=== PATIENT | female | born 1980 | race Caucasian/White ===

== ENCOUNTER 2019-08-16 08:27 | Emergency (ER) | payer MEDICAID ==
--- NOTE | 2019-08-16 08:39 | EDM.PDOC ---
ED HPI GENERAL MEDICAL PROBLEM - General Chief Complaint: General Stated Complaint: SWOLLEN GLANDS Time Seen by Provider: 08/16/19 08:39 Source of Information: Reports: Patient History Limitations: Reports: No Limitations - History of Present Illness INITIAL COMMENTS - FREE TEXT/NARRATIVE: This 38 year old female is admitted to the ED with a chief complaint of " swollen glands in her right groin and left neck". The swelling in her right groin started 4 days ago with little pain associated with it and developed as sore throat 3 days ago with swelling of glands in her neck. She complains of a mild cough over the past 4 days with lethargy. She denies any fever or chills. She denies any other symptoms at this time. Onset: Gradual Duration: Day(s): (4 days ago with right groin swelling with very little discomfort progressing to left neck "gland" swelling that started Wednesday (3 days ago).) Location: Reports: Other (right groin and left neck nodes.) Quality: Reports: Other (not painful but uncomfortable.) Severity: Mild Improves with: Reports: None Worsens with: Reports: None Associated Symptoms: Reports: Weakness Right groin Pain Score (Numeric/FACES): 7 lymph nodes Pain Score (Numeric/FACES): 7 - Related Data Allergies Allergy/AdvReac Type Severity Reaction Status Date / Time No Known Allergies Allergy Verified 08/16/19 08:42 Home Meds: Home Meds Estrogen,Con/M-Progest Acet [Prempro 0.3 MG-1.5 MG] 1 mg PO DAILY 07/12/16 [ History] Venlafaxine [Effexor] 150 mg PO DAILY 07/12/16 [History] Cephalexin [Keflex] 500 mg PO BID 6 Days #12 capsule 08/16/19 [Rx] Progesterone 100 mg PO ASDIRECTED 08/16/19 [History] Past Medical History - Past Surgical History Female Surgical History: Reports: Hysterectomy Social & Family History - Family History Family Medical History: Noncontributory - Caffeine Use Caffeine Use: Reports: None ED ROS GENERAL - Review of Systems Review Of Systems: See Below Constitutional: Reports: Weakness, Fatigue HEENT: Reports: Throat Pain (as if throat is "on fire". Had tonsils removed years ago.) Respiratory: Reports: Cough (mild coughing over the past 4 days.) Cardiovascular: Reports: No Symptoms Endocrine: Reports: No Symptoms GI/Abdominal: Reports: No Symptoms : Reports: No Symptoms Musculoskeletal: Reports: No Symptoms Skin: Reports: No Symptoms, Lumps (right groin and left anterior neck.) Neurological: Reports: No Symptoms ED EXAM, GENERAL - Physical Exam Exam: See Below Exam Limited By: No Limitations General Appearance: Alert, WD/WN, No Apparent Distress Eye Exam: Bilateral Eye: EOMI, Normal Inspection, PERRL Ears: Normal External Exam, Normal Canal, Hearing Grossly Normal, Normal TMs Ear Exam: Bilateral Ear: Auricle Normal, Canal Normal, TM normal Nose: Normal Inspection, Normal Mucosa, No Blood Throat/Mouth: Normal Lips, Normal Teeth, Other (erythema is noted of the posterior pharynx with mild exudate. No tonsils noted.) Head: Atraumatic, Normocephalic Neck: Normal Inspection, Supple, Full Range of Motion, Lymphadenopathy (L) (2.5 X 3.5cm slightly tender high anterior cervical lymph node.). No: Carotid Bruit , Thyromegaly Respiratory/Chest: No Respiratory Distress, Lungs Clear, Normal Breath Sounds, No Accessory Muscle Use, Chest Non-Tender Cardiovascular: Normal Peripheral Pulses, Regular Rate, Rhythm, No Edema, No Gallop, No JVD, No Murmur, No Rub Peripheral Pulses: 3+: Carotid (L), Dorsalis Pedis (L), Dorsalis Pedis (R), 4+: Carotid (R), Femoral (L), Femoral (R) GI/Abdominal: Normal Bowel Sounds, Soft, Non-Tender, No Organomegaly, No Distention, No Abnormal Bruit, No Mass (Female) Exam: Deferred (but there is a 3.5 X 4.0cm slightly tender right inguinal lymph node.) Rectal (Female) Exam: Deferred Back Exam: Normal Inspection, Full Range of Motion, NT Extremities: Normal Inspection, Normal Range of Motion, Non-Tender, Normal Capillary Refill, No Pedal Edema Neurological: Alert, Oriented, CN II-XII Intact, Normal Cognition, Normal Gait, Normal Reflexes, No Motor/Sensory Deficits Psychiatric: Normal Affect, Normal Mood Lymphatic: Adenopathy (As noted above.) Course - Vital Signs Text/Narrative:: When evaluating the patient laying down, the lymph node in the right groin is unremarkable. I discussed this with the patient. I also reviewed all of her diagnostic test. She will be discharged on Keflex for the erythema and right cervical node. The patient agrees with the discharge plan. Last Recorded V/S: Last Vital Signs Temp 99.4 F 08/16/19 08:40 Pulse 99 08/16/19 08:40 Resp 18 08/16/19 08:40 BP 131/85 08/16/19 08:40 Pulse Ox 95 08/16/19 08:40 - Orders/Labs/Meds Orders: Active Orders 24 hr Category Date Time Status CULTURE STREP A CONFIRMATION [RM] Stat Lab 08/16/19 09:25 Results STREP SCRN A RAPID W CULT CONF [RM] Stat Lab 08/16/19 09:25 Results cephALEXin [Keflex] Med 08/16/19 11:08 Once 500 mg PO ONETIME ONE Medication Orders Cephalexin (Keflex) 500 mg PO ONETIME ONE Stop: 08/16/19 11:09 Labs: Laboratory Tests 08/16/19 08/16/19 08/16/19 Range/Units 08:40 09:04 09:04 WBC 13.29 H (4.0-11.0) K/uL RBC 4.63 (4.30-5.90) M/uL Hgb 14.2 (12.0-16.0) g/dL Hct 42.5 (36.0-46.0) % MCV 91.8 (80.0-98.0) fL MCH 30.7 (27.0-32.0) pg MCHC 33.4 (31.0-37.0) g/dL RDW Std Deviation 45.0 (28.0-62.0) fl RDW Coeff of Grace 14 (11.0-15.0) % Plt Count 182 (150-400) K/uL MPV 10.60 (7.40-12.00) fL Neut % (Auto) 83.2 H (48.0-80.0) % Lymph % (Auto) 8.7 L (16.0-40.0) % Bartholomew % (Auto) 7.1 (0.0-15.0) % Eos % (Auto) 0.8 (0.0-7.0) % Baso % (Auto) 0.2 (0.0-1.5) % Neut # (Auto) 11.1 H (1.4-5.7) K/uL Lymph # (Auto) 1.2 (0.6-2.4) K/uL Bartholomew # (Auto) 1.0 H (0.0-0.8) K/uL Eos # (Auto) 0.1 (0.0-0.7) K/uL Baso # (Auto) 0.0 (0.0-0.1) K/uL Nucleated RBC % 0.0 /100WBC Nucleated RBCs # 0 K/uL Sodium 142 (136-145) mmol/L Potassium 4.0 (3.5-5.1) mmol/L Chloride 105 (98-107) mmol/L Carbon Dioxide 29.1 (21.0-32.0) mmol/L BUN 10 (7.0-18.0) mg/dL Creatinine 0.8 (0.6-1.0) mg/dL Est Cr Clr Drug Dosing 92.72 mL/min Estimated GFR (MDRD) > 60.0 ml/min Glucose 104 (74-106) mg/dL Calcium 8.9 (8.5-10.1) mg/dL Total Bilirubin 0.3 (0.2-1.0) mg/dL AST 18 (15-37) IU/L ALT 19 (14-63) IU/L Alkaline Phosphatase 74 (46-116) U/L Total Protein 7.4 (6.4-8.2) g/dL Albumin 3.8 (3.4-5.0) g/dL Globulin 3.6 (2.6-4.0) g/dL Albumin/Globulin Ratio 1.1 (0.9-1.6) Urine Color YELLOW Urine Appearance SLT CLOUDY Urine pH 6.0 (5.0-8.0) Ur Specific Devine 1.025 (1.001-1.035) Urine Protein NEGATIVE (NEGATIVE) mg/dL Urine Glucose (UA) NEGATIVE (NEGATIVE) mg/dL Urine Ketones TRACE H (NEGATIVE) mg/dL Urine Occult Blood NEGATIVE (NEGATIVE) Urine Nitrite NEGATIVE (NEGATIVE) Urine Bilirubin NEGATIVE (NEGATIVE) Urine Urobilinogen 0.2 (<2.0) EU/dL Ur Leukocyte Esterase NEGATIVE (NEGATIVE) Meds: Medications Generic Name Dose Route Start Last Admin Trade Name Freq PRN Reason Stop Dose Admin Cephalexin 500 mg 08/16/19 11:08 Keflex PO 08/16/19 11:09 ONETIME ONE Departure - Departure Time of Disposition: 11:14 Disposition: Home, Self-Care 01 Condition: Good Clinical Impression: Lymph nodes enlarged, Bronchitis - Discharge Information *PRESCRIPTION DRUG MONITORING PROGRAM REVIEWED*: Yes *COPY OF PRESCRIPTION DRUG MONITORING REPORT IN PATIENT KASEY: Yes Referrals: Cheryl [place] DO [Primary Care Provider] - Forms: ED Department Discharge Additional Instructions: Take all medications as directed. Follow up with your PCP in the next two to four days. Drink plenty of clear liquids for the next 24-48 hours. Rest for the next 24 hours. Return to the ED if your condition gets worse or should you have any questions or concerns. The following information is given to patients seen in the emergency department who are being discharged to home. This information is to outline your options for follow-up care. We provide all patients seen in our emergency department with a follow-up referral. The need for follow-up, as well as the timing and circumstances, are variable depending upon the specifics of your emergency department visit. If you don't have a primary care physician on staff, we will provide you with a referral. We always advise you to contact your personal physician following an emergency department visit to inform them of the circumstance of the visit and for follow-up with them and/or the need for any referrals to a consulting specialist. The emergency department will also refer you to a specialist when appropriate. This referral assures that you have the opportunity for follow-up care with a specialist. All of these measure are taken in an effort to provide you with optimal care, which includes your follow-up. Under all circumstances we always encourage you to contact your private physician who remains a resource for coordinating your care. When calling for follow-up care, please make the office aware that this follow-up is from your recent emergency room visit. If for any reason you are refused follow-up, please contact the [facility] Emergency Department at and asked to speak to the emergency department charge nurse. Sepsis Event Note - Focused Exam Vital Signs: Vital Signs Temp Pulse Resp BP Pulse Ox 08/16/19 08:40 99.4 F 99 18 131/85 95 Date Exam was Performed: 08/16/19 Time Exam was Performed: 11:08 - My Orders Last 24 Hours: My Active Orders 08/16/19 09:25 CULTURE STREP A CONFIRMATION [RM] Stat STREP SCRN A RAPID W CULT CONF [RM] Stat 08/16/19 11:08 cephALEXin [Keflex] 500 mg PO ONETIME ONE - Assessment/Plan Last 24 Hours: My Active Orders 08/16/19 09:25 CULTURE STREP A CONFIRMATION [RM] Stat STREP SCRN A RAPID W CULT CONF [RM] Stat 08/16/19 11:08 cephALEXin [Keflex] 500 mg PO ONETIME ONE
--- NOTE | 2019-08-16 09:41 | CR ---
Chest: 2 views of the chest were obtained. Comparison: No prior chest imaging is available. Heart size and mediastinum are normal. Lungs are clear. Bony structures are unremarkable. Impression: 1. Nothing acute is appreciated on 2 view chest x-ray. Diagnostic code #1 This report was dictated in Mountain Standard Time
[2019-08-16 09:53] LABS: BLOOD UREA NITROGEN,BUN 10 mg/dL (7.0-18.0); CARBON DIOXIDE,CO2 29.1 mmol/L (21.0-32.0); CHLORIDE,CL 105 mmol/L (98-107); GLUCOSE RANDOM 104 mg/dL (74-106); SODIUM,NA 142 mmol/L (136-145)
[2019-08-16] MEDS ORDERED: Cephalexin 500 MG Cap PO ONE (11:08)
[2019-08-16 11:35] VITALS: BP 135/81; PULSE 98
== END 2019-08-16 11:34 | disposition home or self-care (01) ==
LOC: MW.ED 08:27
DX: R59.0 Localized enlarged lymph nodes (principal); J40 Bronchitis, not specified as acute or chronic; Z79.899 Other long term (current) drug therapy
CPT/HCPCS: 36415; 71046; 80053; 81003; 85025; 87081; 87880; 99283; A9270

== ENCOUNTER 2020-03-24 15:39 | Emergency (ER) | payer MEDICAID ==
[2020-03-24 15:59] VITALS: BP 122/73; PULSE 96
--- NOTE | 2020-03-24 16:11 | EDM.PDOC ---
ED HPI GENERAL MEDICAL PROBLEM - General Chief Complaint: ENT Problem Stated Complaint: STREP THROAT Time Seen by Provider: 03/24/20 15:42 Source of Information: Reports: Patient History Limitations: Reports: No Limitations - History of Present Illness INITIAL COMMENTS - FREE TEXT/NARRATIVE: 39F no relevant PMHx presents for sore throat. 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 Got a COVID test yesterday which was negative, but her school is requiring that she also be tested for strep throat. She denies cough, shortness of breath, fever, or other symptoms other than sore throat. Throat Pain Score (Numeric/FACES): 4 - Related Data Allergies Allergy/AdvReac Type Severity Reaction Status Date / Time sulfamethoxazole Allergy Rash Verified 08/16/19 11:22 [From Bactrim] trimethoprim [From Bactrim] Allergy Rash Verified 08/16/19 11:22 Home Meds: Home Meds Estrogen,Con/M-Progest Acet [Prempro 0.3 MG-1.5 MG] 1 mg PO DAILY 07/12/16 [History] Venlafaxine [Effexor] 150 mg PO DAILY 07/12/16 [History] Progesterone, Micronized [Progesterone] 100 mg PO ASDIRECTED MDD EVERY OTHER DAY 03/24/20 [History] Past Medical History HEENT History: Reports: None Cardiovascular History: Reports: None Respiratory History: Reports: None Gastrointestinal History: Reports: None Genitourinary History: Reports: None [employer] History: Reports: None Musculoskeletal History: Reports: None Neurological History: Reports: None Psychiatric History: Reports: None Endocrine/Metabolic History: Reports: None Hematologic History: Reports: None Immunologic History: Reports: None Oncologic (Cancer) History: Reports: None Dermatologic History: Reports: None - Infectious Disease History Infectious Disease History: Reports: Chicken Pox - Past Surgical History Female Surgical History: Reports: Hysterectomy Social & Family History - Family History Family Medical History: Noncontributory - Caffeine Use Caffeine Use: Reports: None ED ROS ENT - Review of Systems Review Of Systems: Comprehensive ROS is negative, except as noted in HPI. ED EXAM, ENT - Physical Exam Exam: See Below Exam Limited By: No Limitations General Appearance: Alert, WD/WN, No Apparent Distress Ears: Normal External Exam Nose: Normal Inspection, Normal Mucousa Mouth/Throat: Normal Inspection, Normal Gums, Normal Lips, Normal Oropharynx, Normal Teeth. No: Hoarse Voice, Muffled Voice, Pharyngeal Erythema, Throat Swelling, Tongue Swelling, Tonsillar Exudates, Tonsillar Swelling, Uvular Deviation Head: Atraumatic, Normocephalic Neck: Normal Inspection Respiratory/Chest: No Respiratory Distress, Lungs Clear, Normal Breath Sounds, No Accessory Muscle Use Cardiovascular: Normal Peripheral Pulses, Regular Rate, Rhythm Extremities: Normal Inspection Neurological: Alert Psychiatric: Normal Affect, Normal Mood Skin: Warm, Dry, Intact, Normal Color Course - Vital Signs Last Recorded V/S: Last Vital Signs Temp 97.1 F 03/24/20 15:50 Pulse 96 03/24/20 15:50 Resp 20 03/24/20 15:50 BP 122/73 03/24/20 15:50 Pulse Ox 97 03/24/20 15:50 - Orders/Labs/Meds Orders: Active Orders 24 hr Category Date Time Status CULTURE STREP A CONFIRMATION [] Stat Lab 03/24/20 16:05 Results STREP SCRN A RAPID W CULT CONF [] Stat Lab 03/24/20 16:05 Results - Re-Assessments/Exams Free Text/Narrative Re-Assessment/Exam: 03/24/20 16:11 Will f/u rapid strep testing and dispo accordingly. 03/24/20 16:24 Strep testing negative. Will d/c with PMD f/u and return precautions Departure - Departure Time of Disposition: 16:24 Disposition: Home, Self-Care 01 Condition: Good Clinical Impression: Pharyngitis Qualifiers: Pharyngitis/tonsillitis etiology: unspecified etiology Qualified Code(s): J02.9 - Acute pharyngitis, unspecified - Discharge Information Instructions: Pharyngitis Referrals: Cheryl Linton DO [Primary Care Provider] - Forms: ED Department Discharge, ED Return to Work/School Form Additional Instructions: The following information is given to patients seen in the emergency department who are being discharged to home. This information is to outline your options for follow-up care. We provide all patients seen in our emergency department with a follow-up referral. The need for follow-up, as well as the timing and circumstances, are variable depending upon the specifics of your emergency department visit. If you don't have a primary care physician on staff, we will provide you with a referral. We always advise you to contact your personal physician following an emergency department visit to inform them of the circumstance of the visit and for follow-up with them and/or the need for any referrals to a consulting specialist. The emergency department will also refer you to a specialist when appropriate. This referral assures that you have the opportunity for follow-up care with a specialist. All of these measure are taken in an effort to provide you with optimal care, which includes your follow-up. Under all circumstances we always encourage you to contact your private physician who remains a resource for coordinating your care. When calling for follow-up care, please make the office aware that this follow-up is from your recent emergency room visit. If for any reason you are refused follow-up, please contact the [facility] Emergency Department at and asked to speak to the emergency department charge nurse. Follow up with a primary care physician in 1-3 days; if you do not already have one, you can utilize either of the below clinics and let them know you were seen in the ED and require alfonso follow-up: [facility] [address] [place] [address] [address] Sepsis Event Note (ED) - Evaluation Sepsis Screening Result: No Definite Risk - Focused Exam Vital Signs: Vital Signs Temp Pulse Resp BP Pulse Ox 03/24/20 15:50 97.1 F 96 20 122/73 97 - My Orders Last 24 Hours: My Active Orders 03/24/20 16:05 CULTURE STREP A CONFIRMATION [RM] Stat STREP SCRN A RAPID W CULT CONF [RM] Stat - Assessment/Plan Last 24 Hours: My Active Orders 03/24/20 16:05 CULTURE STREP A CONFIRMATION [RM] Stat STREP SCRN A RAPID W CULT CONF [RM] Stat
== END 2020-03-24 16:32 | disposition home or self-care (01) ==
LOC: MW.ED 15:39
DX: J02.9 Acute pharyngitis, unspecified (principal); Z88.2 Allergy status to sulfonamides; Z20.828 Contact with and (suspected) exposure to other viral communicable diseases; Z79.899 Other long term (current) drug therapy
CPT/HCPCS: 87081; 87880-QW; 99282; 99283

== ENCOUNTER 2020-10-26 15:38 | Emergency (ER) | payer MEDICAID ==
--- NOTE | 2020-10-26 15:40 | EDM.PDOC ---
ED HPI GENERAL MEDICAL PROBLEM - General Stated Complaint: LT PINKER CUT/INJURY Time Seen by Provider: 10/26/20 15:39 Source of Information: Reports: Patient History Limitations: Reports: No Limitations - History of Present Illness INITIAL COMMENTS - FREE TEXT/NARRATIVE: HISTORY AND PHYSICAL: History of present illness: The patient is a 40-year-old female who presents to the emergency room with a laceration on her 5th left finger palmar side. 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 She wrapped the finger up and came straight to the emergency room. She did not take any [id number] medicines prior to coming to the emergency room. Patient denies any fever, chills, headache, change in vision, syncope or near syncope. Denies any chest pain, back pain, shortness of breath or cough. Denies any abdominal pain, nausea, vomiting, diarrhea, constipation or dysuria. Patient has been eating and drinking appropriately. Review of systems: As per history of present illness and below otherwise all systems reviewed and negative. Past medical history: As per history of present illness and as reviewed below otherwise noncontributory. Surgical history: As per history of present illness and as reviewed below otherwise noncontributory. Social history: See social history for further information Family history: As per history of present illness and as reviewed below otherwise noncontributory. Physical exam: General: Well developed and well nourished. Alert and orientated x 3. Nontoxic in appearance and in no acute distress. Vital signs are stable and have been reviewed by me. Nursing notes were reviewed. HEENT: Atraumatic, normocephalic, pupils equal and reactive bilaterally, negative for conjunctival pallor or scleral icterus, mucous membranes moist, TMs normal bilaterally, throat clear, neck supple, nontender, trachea midline. No drooling or trismus noted. No meningeal signs. No hot potato voice noted. Lungs: Clear to auscultation bilaterally. No wheezes, rales, or rhonchi. Chest nontender. Normal work of breathing, no accessory muscles used. Heart: S1S2, regular rate and rhythm without overt murmur, gallops, or rubs. No JVD. No peripheral edema Abdomen: Soft, nondistended, nontender. Normoactive bowel sounds. Negative for masses or costovertebral tenderness. Skin: 1.2 cm linear laceration on left 5th finger palmar side. No lesions or rashes noted. Hematologic: No petechiae or purpra. Mucosa appropriate color and normal nail bed color and refill. Extremities: Moves all extremities per self without difficulty or deficits, negative for cords or calf pain. Neurovascular unremarkable. Neuro: Awake, alert, oriented. Cranial nerves II through XII unremarkable. Cerebellum unremarkable. Motor and sensory unremarkable throughout. Exam nonfocal. Psychiatric: Mood and affect are appropriate. Normal thought process. Answering questions appropriately. Notes: *This patient was seen and evaluated during the 2019 SARS-CoV-2 novel coronavirus pandemic period. Community viral transmission is ongoing at time of this encounter and the emergency department is operating under pandemic response procedures. After discussion and exam the patient is agreeable to suture approximation of laceration. I have talked with the patient about today's findings, in addition to providing specific details for plan of care. Reassessment at the time of disposition demonstrates that the patient is in no acute distress. The patient is stable for discharge, counseling was provided and we discussed in great detail signs and symptoms that would prompt them to return to the Emergency Department. Medication, follow up and supportive care measures were reviewed and discussed. Voices understanding and is agreeable to plan of care. Denies any further questions or concerns at this time. Therapeutics:Lidocaine 1% Impression: left 5th finger laceration Plan: 1. You were evaluated today on an emergent basis. Your complaint of left 5th digit laceration. Your laceration closed with 3 sutures. Keep the area clean and dry. Monitor for signs of infection such as redness, swelling, and drainage. Have the sutures removed in 7-10 days. You can return to the emergency department for removal. 2. You can alternate Tylenol and ibuprofen as needed for pain and fever management. 3. We encourage you to follow up with your primary care provider and/or recommended specialist in the next few days for re-evaluation and further care/management. 4. If your symptoms should worsen, new symptoms develop or any of the signs and symptoms we discussed should arise please return to the emergency room or call 911 (if needed). Definitive disposition and diagnosis as appropriate pending reevaluation and review of above. Left Finger-Little Pain Score (Numeric/FACES): 4 - Related Data Allergies Allergy/AdvReac Type Severity Reaction Status Date / Time sulfamethoxazole Allergy Rash Verified 10/26/20 15:51 [From Bactrim] trimethoprim [From Bactrim] Allergy Rash Verified 10/26/20 15:51 Skin glue Allergy Other Uncoded 10/26/20 15:51 Home Meds: Home Meds Progesterone, Micronized [Progesterone] 100 mg PO ASDIRECTED MDD EVERY OTHER DAY 03/24/20 [History] Albuterol [Ventolin HFA] 1 dose INH ASDIRECTED 10/26/20 [History] Budesonide/Formoterol Fumarate [Symbicort 160-4.5 Mcg Inhaler] 1 dose INH ASDIRECTED 10/26/20 [History] Dextroamphetamine [Dextrostat] 5 mg PO DAILY 10/26/20 [History] Doxycycline [Vibramycin] 100 mg PO DAILY 10/26/20 [History] Estradiol [Jeni] 1 dose ASDIRECTED 10/26/20 [History] Venlafaxine [Effexor] 1 dose PO ASDIRECTED 10/26/20 [History] predniSONE [Prednisone] 5 mg PO DAILY 10/26/20 [History] Past Medical History HEENT History: Reports: None Cardiovascular History: Reports: None Respiratory History: Reports: None Gastrointestinal History: Reports: None Genitourinary History: Reports: None STREET [employer]IC History: Reports: None Musculoskeletal History: Reports: None Neurological History: Reports: None Psychiatric History: Reports: None Endocrine/Metabolic History: Reports: None Hematologic History: Reports: None Immunologic History: Reports: None Oncologic (Cancer) History: Reports: None Dermatologic History: Reports: None - Infectious Disease History Infectious Disease History: Reports: Chicken Pox - Past Surgical History Female Surgical History: Reports: Hysterectomy Social & Family History - Family History Family Medical History: No Pertinent Family History - Caffeine Use Caffeine Use: Reports: None Review of Systems - Review of Systems Review Of Systems: Comprehensive ROS is negative, except as noted in HPI. ED EXAM, GENERAL - Physical Exam Exam: See Below (See dictation) ED TRAUMA EXTREMITY PROCEDURES - Laceration/Wound Repair Left Ventral Digit - 5th (Baby) Lac/Wound Length In cm: 1.2 Appearance: Superficial, Linear Distal NVT: Neuro & Vascular Intact, No Tendon Injury Anesthetic Type: Local Local Anesthesia - Lidocaine (Xylocaine): 1% Plain Local Anesthetic Volume: 2cc Skin Prep: Chlorhexidine (Hibiciens) Exploration/Debridement/Repair: Wound Explored, No Foreign Material Found Closed With: Sutures Suture Size: 3-0 # of Sutures: 3 Suture Type: Prolene Course - Vital Signs Last Recorded V/S: Last Vital Signs Temp 97 F 10/26/20 15:54 Pulse 110 H 10/26/20 15:54 Resp 18 10/26/20 15:54 BP 143/88 H 10/26/20 15:54 Pulse Ox 95 10/26/20 15:54 - Orders/Labs/Meds Meds: Medications Discontinued Medications Generic Name Dose Route Start Last Admin Trade Name Darryl PRN Reason Stop Dose Admin Lidocaine HCl 2 ml 10/26/20 15:45 10/26/20 16:00 Lidocaine 1% Pf 2 Ml Sdv INJECT 10/26/20 15:46 2 ml ONETIME ONE Administration Departure - Departure Time of Disposition: 16:13 Disposition: Home, Self-Care 01 Condition: Good Clinical Impression: Laceration of finger Qualifiers: Encounter type: initial encounter Finger: little finger Damage to nail status: without damage Foreign body presence: without foreign body Laterality: left Qualified Code(s): S61.217A - Laceration without foreign body of left little finger without damage to nail, initial encounter - Discharge Information *PRESCRIPTION DRUG MONITORING PROGRAM REVIEWED*: Not Applicable *COPY OF PRESCRIPTION DRUG MONITORING REPORT IN PATIENT KASEY: Not Applicable Instructions: Laceration Care, Adult Referrals: PCP,None [Primary Care Provider] - Forms: ED Department Discharge Additional Instructions: The following information is given to patients seen in the emergency department who are being discharged to home. This information is to outline your options for follow-up care. We provide all patients seen in our emergency department with a follow-up referral. The need for follow-up, as well as the timing and circumstances, are variable depending upon the specifics of your emergency department visit. If you don't have a primary care physician on staff, we will provide you with a referral. We always advise you to contact your personal physician following an emergency department visit to inform them of the circumstance of the visit and for follow-up with them and/or the need for any referrals to a consulting specialist. The emergency department will also refer you to a specialist when appropriate. This referral assures that you have the opportunity for follow-up care with a specialist. All of these measure are taken in an effort to provide you with optimal care, which includes your follow-up. Under all circumstances we always encourage you to contact your private physician who remains a resource for coordinating your care. When calling for follow-up care, please make the office aware that this follow-up is from your recent emergency room visit. If for any reason you are refused follow-up, please contact the [facility] Emergency Department at and asked to speak to the emergency department charge nurse. [facility] [address] [place] [id number] [address] Plan: 1. You were evaluated today on an emergent basis. Your complaint of left 5th digit laceration. Your laceration closed with 3 sutures. Keep the area clean and dry. Monitor for signs of infection such as redness, swelling, and drainage. Have the sutures removed in 7-10 days. You can return to the emergency department for removal. 2. You can alternate Tylenol and ibuprofen as needed for pain and fever management. 3. We encourage you to follow up with your primary care provider and/or recommended specialist in the next few days for re-evaluation and further care/management. 4. If your symptoms should worsen, new symptoms develop or any of the signs and symptoms we discussed should arise please return to the emergency room or call 911 (if needed). Sepsis Event Note (ED) - Focused Exam Vital Signs: Vital Signs Temp Pulse Resp BP Pulse Ox 10/26/20 15:54 97 F 110 H 18 143/88 H 95
[2020-10-26] MEDS ORDERED: Lidocaine 1% PF 2 ML SDV INJECT ONE (15:45)
[2020-10-26 16:25] VITALS: BP 143/88; PULSE 110
== END 2020-10-26 16:19 | disposition home or self-care (01) ==
LOC: MW.ED 15:38
DX: S61.217A Laceration without foreign body of left little finger without damage to nail, initial encounter (principal); Z88.2 Allergy status to sulfonamides; Z91.048 Other nonmedicinal substance allergy status; Z88.1 Allergy status to other antibiotic agents; Z79.899 Other long term (current) drug therapy; W25.XXXA Contact with sharp glass, initial encounter
CPT/HCPCS: 12001; 99282; 99282-25

== ENCOUNTER 2021-03-06 17:34 | Emergency (ER) | payer MEDICAID ==
--- NOTE | 2021-03-06 19:15 | CR ---
INDICATION: Cough, shortness of breath TECHNIQUE: Chest 2 views. COMPARISON: August 16, 2019 FINDINGS: Cardiovascular and mediastinum: Heart size and vasculature are normal in caliber and appearance. Mediastinum is within normal limits. Lungs and pleural spaces: New patchy opacity in the right upper lobe. No sign of pleural effusion. No pneumothorax. Bones and soft tissues: No significant findings. IMPRESSION: Patchy opacity in the right upper lobe concerning for infection, including COVID-19. Dictated by Samina Devine MD @ 03/06/2021 7:12:[address] Samina Devine @ Mar 06 2021 7:12PM
--- NOTE | 2021-03-06 19:59 | EDM.PDOC ---
ED HPI GENERAL MEDICAL PROBLEM - General Chief Complaint: Respiratory Problem Stated Complaint: FEEELS LIKE GETTING BRONCHIDIS Time Seen by Provider: 03/06/21 17:36 Source of Information: Reports: Patient History Limitations: Reports: No Limitations - History of Present Illness INITIAL COMMENTS - FREE TEXT/NARRATIVE: HISTORY AND PHYSICAL: History of present illness: Patient is a 40-year-old female who presents to the ED today with concern of sore throat, and cough for the past 3 days. Patient states that she does have a history of seasonal allergies which typically happens in the fall and thought that initially this was her allergies. Patient states that she also has had a stuffy/runny nose which is why she had that she was having seasonal allergies. Patient states she then began feeling like she was having bronchitis starting yesterday as she has been tired and fatigued and wanting to sleep most of the day. Patient states she does not think she has COVID-19 as she had this back in September of this year. Patient states that she does have exercise-induced asthma Patient denies fever, chills, chest pain, shortness of breath. Denies headache, neck stiff ness, change in vision, syncope, or near syncope. Denies nausea, vomiting, abdominal pain, diarrhea, constipation, or dysuria. Has not noted any blood in urine or stool. Patient has been eating and drinking appropriately. Review of systems: As per history of present illness and below otherwise all systems reviewed and negative. Past medical history: As per history of present illness and as reviewed below otherwise noncontributory. Surgical history: As per history of present illness and as reviewed below otherwise noncontributory. Social history: See social history for further information Family history: As per history of present illness and as reviewed below otherwise noncontributory. Physical exam: General: Patient is alert, oriented, and in no acute distress. Patient sitting comfortably on exam table, tired appearing. Vitals stable and reviewed by me. HEENT: Atraumatic, normocephalic, pupils equal and reactive bilaterally, negative for conjunctival pallor or scleral icterus, mucous membranes moist, throat clear, uvula midline neck supple, nontender, trachea midline. No drooling or trismus noted. No meningeal signs. No hot potato voice noted. Lungs: Clear to auscultation, breath sounds equal bilaterally, chest nontender. Heart: S1S2, regular rate and rhythm without overt murmur Abdomen: Soft, nondistended, nontender. Negative for masses or hepatosplenomegaly. Negative for costovertebral tenderness. Pelvis: Stable nontender. Genitourinary: Deferred. Rectal: Deferred. Skin: Intact, warm, dry. No lesions or rashes noted. Extremities: Atraumatic, negative for cords or calf pain. Neurovascular unremarkable. Neuro: Awake, alert, oriented. Cranial nerves II through XII unremarkable. Cerebellum unremarkable. Motor and sensory unremarkable throughout. Exam nonfocal. Notes: Patient is a 40-year-old female who presents emergency room today with concern of sore throat and cough x3 days and feeling tired and rundown worsening over the past 1 to 2 days. Upon arrival to the ED, patient is vitally stable and tired appearing on exam. Exam is otherwise unremarkable. Will obtain a two- view chest x-ray, influenza/COVID-19 and strep swab. Influenza/COVID-19/strep negative. Chest x-ray shows patchy opacity in the right upper lobe concerning for infection. Upon reevaluation of patient, she remains vitally stable and comfortable throughout stay in ED but still feels tired/rundown according to patient. Given concern for community aquired pneumonia, I did offer basic labwork, however, patient declined stating she is ready to go home and sleep for the night. She states that she will monitor her symptoms closely at home and will return if she feels this is necessary. Will give patient her first dose of antibiotics today in the emergency room due to pharmacies closing and send Rx to the pharmacy. Strict return precautions thoroughly discussed with patient. Discussed importance for follow-up with primary care provider. Voices understanding and is agreeable to plan of care. Denies any further questions or concerns at this time. Diagnostics: COVID-19, influenza, chest x-ray two-view, strep Therapeutics: Augmentin, Tylenol Prescription: Augmentin, azithromycin Impression: Community-acquired pneumonia, right upper lobe Plan: 1. Take medication as prescribed. You can alternate ibuprofen and Tylenol as directed for pain and discomfort. 2. Follow-up with a primary care provider as discussed. Return to the ED as needed and as discussed. Definitive disposition and diagnosis as appropriate pending reevaluation and review of above. Sore throat Pain Score (Numeric/FACES): 5 - Related Data Allergies Allergy/AdvReac Type Severity Reaction Status Date / Time sulfamethoxazole Allergy Rash Verified 10/26/20 15:51 [From Bactrim] trimethoprim [From Bactrim] Allergy Rash Verified 10/26/20 15:51 Skin glue Allergy Other Uncoded 10/26/20 15:51 Home Meds: Home Meds Progesterone, Micronized [Progesterone] 100 mg PO ASDIRECTED MDD EVERY OTHER DAY 03/24/20 [History] Albuterol [Ventolin HFA] 1 dose INH ASDIRECTED 10/26/20 [History] Estradiol [Jeni] 1 dose ASDIRECTED 10/26/20 [History] Venlafaxine [Effexor] 1 dose PO ASDIRECTED 10/26/20 [History] Amoxicillin/Potassium Clav [Augmentin 875-125 Tablet] 1 each PO BID 7 Days #14 tablet 03/06/21 [Rx] Azithromycin 250 mg PO DAILY 5 Days #6 tablet 03/06/21 [Rx] Past Medical History HEENT History: Reports: None Cardiovascular History: Reports: None Respiratory History: Reports: Asthma, Bronchitis, Recurrent Gastrointestinal History: Reports: None Genitourinary History: Reports: None 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 Musculoskeletal History: Reports: None Neurological History: Reports: None Psychiatric History: Reports: Anxiety Endocrine/Metabolic History: Reports: None Hematologic History: Reports: None Immunologic History: Reports: None Oncologic (Cancer) History: Reports: None Dermatologic History: Reports: None - Infectious Disease History Infectious Disease History: Reports: Chicken Pox - Past Surgical History Head Surgeries/Procedures: Reports: None HEENT Surgical History: Reports: Adenoidectomy, Tonsillectomy Cardiovascular Surgical History: Reports: None Respiratory Surgical History: Reports: None GI Surgical History: Reports: None Female Surgical History: Reports: Hysterectomy Endocrine Surgical History: Reports: None Neurological Surgical History: Reports: None Musculoskeletal Surgical History: Reports: None Oncologic Surgical History: Reports: None Dermatological Surgical History: Reports: None Social & Family History - Family History Family Medical History: No Pertinent Family History - Tobacco Use Tobacco Use Status *Q: Never Tobacco User - Caffeine Use Caffeine Use: Reports: None - Recreational Drug Use Recreational Drug Use: No ED ROS GENERAL - Review of Systems Review Of Systems: Comprehensive ROS is negative, except as noted in HPI. ED EXAM, GENERAL - Physical Exam Exam: See Below (see dictation) Course - Vital Signs Last Recorded V/S: Last Vital Signs Temp 97.6 F 03/06/21 18:13 Pulse 90 03/06/21 20:38 Resp 18 03/06/21 20:38 BP 127/70 03/06/21 20:38 Pulse Ox 97 03/06/21 20:38 - Orders/Labs/Meds Orders: Active Orders 24 hr Category Date Time Status Isolation [COMM] Routine Oth 03/06/21 18:22 Active Labs: Laboratory Tests 03/06/21 03/06/21 Range/Units 19:03 20:04 SARS-CoV-2 RNA (FATMATA) NEGATIVE (NEGATIVE) Group A Strep (PCR) NOT DETECTED (NOT DETECT) Meds: Medications Discontinued Medications Generic Name Dose Route Start Last Admin Trade Name Darryl PRN Reason Stop Dose Admin Acetaminophen 1,000 mg 03/06/21 20:48 Acetaminophen 500 Mg Tab PO 03/06/21 20:49 ONETIME ONE Amoxicillin/Clavulanate Potassium 1 tab 03/06/21 20:47 Amoxicillin/Clavulanate K 875-125 Mg Tab PO 03/06/21 20:48 ONETIME ONE Departure - Departure Time of Disposition: 20:49 Disposition: Home, Self-Care 01 Clinical Impression: Community acquired pneumonia Qualifiers: Laterality: right Lung location: upper lobe of lung Qualified Code(s): J18.9 - Pneumonia, unspecified organism - Discharge Information Prescriptions: Amoxicillin/Potassium Clav [Augmentin 875-125 Tablet] 1 each PO BID 7 Days #14 tablet Azithromycin 250 mg PO DAILY 5 Days #6 tablet Referrals: Cheryl Linton DO [Primary Care Provider] - Forms: ED Department Discharge Additional Instructions: The following information is given to patients seen in the emergency department who are being discharged to home. This information is to outline your options for follow-up care. We provide all patients seen in our emergency department with a follow-up referral. The need for follow-up, as well as the timing and circumstances, are variable depending upon the specifics of your emergency department visit. If you don't have a primary care physician on staff, we will provide you with a referral. We always advise you to contact your personal physician following an emergency department visit to inform them of the circumstance of the visit and for follow-up with them and/or the need for any referrals to a consulting specialist. The emergency department will also refer you to a specialist when appropriate. This referral assures that you have the opportunity for follow-up care with a specialist. All of these measure are taken in an effort to provide you with optimal care, which includes your follow-up. Under all circumstances we always encourage you to contact your private physician who remains a resource for coordinating your care. When calling for follow-up care, please make the office aware that this follow-up is from your recent emergency room visit. If for any reason you are refused follow-up, please contact the [facility] Emergency Department at and asked to speak to the emergency department charge nurse. [facility] [address] [place] [id number] [address] 1. Take medication as prescribed. You can alternate ibuprofen and Tylenol as directed for pain and discomfort. 2. Follow-up with a primary care provider as discussed. Return to the ED as needed and as discussed. Sepsis Event Note (ED) - Evaluation Sepsis Screening Result: No Definite Risk - Focused Exam Vital Signs: Vital Signs Temp Pulse Resp BP Pulse Ox 03/06/21 20:38 90 18 127/70 97 03/06/21 19:42 80 18 118/72 97 03/06/21 18:13 97.6 F 95 17 120/71 97 - My Orders Last 24 Hours: My Active Orders 03/06/21 18:22 Isolation [COMM] Routine - Assessment/Plan Last 24 Hours: My Active Orders 03/06/21 18:22 Isolation [COMM] Routine
[2021-03-06] MEDS ORDERED: Amoxicillin/Clavulanate K 875-125 MG Tab PO ONE (20:47)
[2021-03-06] MEDS ORDERED: Acetaminophen 500 MG Tab PO ONE (20:48)
[2021-03-06 21:08] VITALS: BP 124/70; PULSE 87
== END 2021-03-06 21:11 | disposition home or self-care (01) ==
LOC: MW.ED 17:34
DX: J18.9 Pneumonia, unspecified organism (principal); J45.909 Unspecified asthma, uncomplicated; Z79.899 Other long term (current) drug therapy; Z88.2 Allergy status to sulfonamides; Z88.1 Allergy status to other antibiotic agents; Z91.09 Other allergy status, other than to drugs and biological substances; Z20.822 Contact with and (suspected) exposure to COVID-19
CPT/HCPCS: 71046; 87635; 87651; 87804; 99283; A9270; U0002

== ENCOUNTER 2021-03-08 09:57 | Emergency (ER) | payer MEDICAID ==
--- NOTE | 2021-03-08 10:11 | EDM.PDOC ---
ED HPI GENERAL MEDICAL PROBLEM - General Chief Complaint: Respiratory Problem Stated Complaint: hurts to breath Time Seen by Provider: 03/08/21 10:02 Source of Information: Reports: Patient History Limitations: Reports: No Limitations - History of Present Illness INITIAL COMMENTS - FREE TEXT/NARRATIVE: HISTORY AND PHYSICAL: History of present illness: The patient is a 40-year-old female, with a history of community-acquired pneumonia diagnosed on 03/06/2021 and started on Augmentin and azithromycin, who presents to the emergency room with complaints of worsening of fatigue. The patient's chest x-ray on 03/06/2021 was read as patchy opacity in the right upper lobe concerning for infection, including COVID-19 dictated by Radiologist Samina Devine MD. the patient states that she has been taking her antibiotic as prescribed with her last dose taken at 07 30 this morning. The patient states that she has a home oxygen sensor and it has been reading 92-96. The patient, states that her cough initially was wet however now it is dry. She has having some mild left-sided lateral wall discomfort with cough and deep breath. The patient thought that initially she had allergies or a bronchitis upon approach presenting to the emergency room on 03/06/2021. The patient states that she has been having diarrhea since starting the antibiotics. She states that she is attempting to drink fluids but realizes she is not taking enough. The patient states that her urine has been dark. The patient states that she has not been taking her temperature however, she is chilled at night when sleeping. In the emergency department the patient is hemodynamically stable with a blood pressure of 114/73 and a heart rate of 72. The patient's SPO2 is 98% on room air. Review of systems: As per history of present illness and below otherwise all systems reviewed and negative. Past medical history: As per history of present illness and as reviewed below otherwise noncontributory. Surgical history: As per history of present illness and as reviewed below otherwise noncontributory. Social history: See social history for further information Family history: As per history of present illness and as reviewed below otherwise noncontributory. Physical exam: General: Well developed and well nourished. Alert and orientated x 3. Nontoxic in appearance and in no acute distress. Vital signs are stable and have been reviewed by me. Nursing notes were reviewed. HEENT: Atraumatic, normocephalic, pupils equal and reactive bilaterally, negative for conjunctival pallor or scleral icterus, mucous membranes moist, TMs normal bilaterally, throat clear, neck supple, nontender, trachea midline. No drooling or trismus noted. No meningeal signs. No hot potato voice noted. Lungs: Clear to auscultation bilaterally. No wheezes, rales, or rhonchi. Chest nontender. Normal work of breathing, no accessory muscles used. Heart: S1S2, regular rate and rhythm without overt murmur, gallops, or rubs. No JVD. No peripheral edema Abdomen: Soft, nondistended, nontender. Normoactive bowel sounds. Negative for masses or costovertebral tenderness. Skin: Intact, warm, dry. No lesions or rashes noted. Hematologic: No petechiae or purpra. Mucosa appropriate color and normal nail bed color and refill. Extremities: Atraumatic, moves all extremities per self without difficulty or deficits, negative for cords or calf pain. Neurovascular unremarkable. Neuro: Awake, alert, oriented. Cranial nerves II through XII unremarkable. Cerebellum unremarkable. Motor and sensory unremarkable throughout. Exam nonfocal. Psychiatric: Mood and affect are appropriate. Normal thought process. Answering questions appropriately. Notes: *This patient was seen and evaluated during the 2019 SARS-CoV-2 novel coronavirus pandemic period. Community viral transmission is ongoing at time of this encounter and the emergency department is operating under pandemic response procedures. As stated above the patient is a 40-year-old female that was diagnosed with community-acquired pneumonia on 03/06/2021 and started on Augmentin and azithromycin. The patient has been taking her medications as prescribed. She has been attempting to drink but states she is unable to drink a lot. She states that her appetite has been fine. The patient had refused blood work on her previous visit on 03/06/2021. For today's purposes the patient is not interested in repeating a COVID-19 swab. I will obtain blood work to include blood cultures and a repeat chest x-ray. I will order IV fluids and Toradol for her discomfort. The patient is agreeable with this plan. Patient CBC and CMP were essentially normal. The patient's x-ray was unchanged. I consulted with Dr. Evans who stated the patient had only been on the antibiotics for 2 days and should continue them and to follow-up with her primary care. I discussed the results with the patient and she was agreeable with this discharge plan. I have talked with the patient about today's findings, in addition to providing specific details for plan of care. Reassessment at the time of disposition demonstrates that the patient is in no acute distress. The patient is stable for discharge, counseling was provided and we discussed in great detail signs and symptoms that would prompt them to return to the Emergency Department. Medication, follow up and supportive care measures were reviewed and discussed. Voices understanding and is agreeable to plan of care. Denies any further questions or concerns at this time. Diagnostics: BC, CMP, blood cultures x2, chest x-ray Therapeutics: IV fluids, Toradol 30 IV Impression: Community-acquired pneumonia Plan: 1. You were evaluated today on an emergent basis. Your complaints of increased fatigue and unchanged symptoms with pneumonia were evaluated blood work and another chest x-ray with additional blood cultures. Your blood work was normal. Your chest x-ray IMPRESSION: Right upper lobe infiltrate consistent with pneumonia. As you have only had 2 days with your current antibiotics, I would like for you to continue them and follow-up with your primary care on Wednesday of next week. If you become short of breath or your O2 sensor reads below 92% please return to the emergency department. 2. You can alternate Tylenol and ibuprofen as needed for pain and fever management. 3. We encourage you to follow up with your primary care provider and/or recommended specialist in the next few days for re-evaluation and further care/management. 4. If your symptoms should worsen, new symptoms develop or any of the signs and symptoms we discussed should arise please return to the emergency room or call 911 (if needed). Definitive disposition and diagnosis as appropriate pending reevaluation and review of above. - Related Data Allergies Allergy/AdvReac Type Severity Reaction Status Date / Time sulfamethoxazole Allergy Rash Verified 03/08/21 10:37 [From Bactrim] trimethoprim [From Bactrim] Allergy Rash Verified 03/08/21 10:37 Skin glue Allergy Other Uncoded 03/08/21 10:37 Home Meds: Home Meds Progesterone, Micronized [Progesterone] 100 mg PO ASDIRECTED MDD EVERY OTHER DAY 03/24/20 [History] Albuterol [Ventolin HFA] 1 dose INH ASDIRECTED 10/26/20 [History] Estradiol [Jeni] 1 dose ASDIRECTED 10/26/20 [History] Venlafaxine [Effexor] 1 dose PO ASDIRECTED 10/26/20 [History] Amoxicillin/Potassium Clav [Augmentin 875-125 Tablet] 1 each PO BID 7 Days #14 tablet 03/06/21 [Rx] Azithromycin 250 mg PO DAILY 5 Days #6 tablet 03/06/21 [Rx] Past Medical History HEENT History: Reports: None Cardiovascular History: Reports: None Respiratory History: Reports: Asthma, Bronchitis, Recurrent Gastrointestinal History: Reports: None Genitourinary History: Reports: None [employer] History: Reports: None Musculoskeletal History: Reports: None Neurological History: Reports: None Psychiatric History: Reports: Anxiety Endocrine/Metabolic History: Reports: None Hematologic History: Reports: None Immunologic History: Reports: None Oncologic (Cancer) History: Reports: None Dermatologic History: Reports: None - Infectious Disease History Infectious Disease History: Reports: Chicken Pox - Past Surgical History Head Surgeries/Procedures: Reports: None HEENT Surgical History: Reports: Adenoidectomy, Tonsillectomy Cardiovascular Surgical History: Reports: None Respiratory Surgical History: Reports: None GI Surgical History: Reports: None Female Surgical History: Reports: Hysterectomy Endocrine Surgical History: Reports: None Neurological Surgical History: Reports: None Musculoskeletal Surgical History: Reports: None Oncologic Surgical History: Reports: None Dermatological Surgical History: Reports: None Social & Family History - Family History Family Medical History: No Pertinent Family History - Caffeine Use Caffeine Use: Reports: None ED ROS GENERAL - Review of Systems Review Of Systems: Comprehensive ROS is negative, except as noted in HPI. ED EXAM, GENERAL - Physical Exam Exam: See Below (Dictation) Course - Vital Signs Last Recorded V/S: Last Vital Signs Temp 97.9 F 03/08/21 10:17 Pulse 68 03/08/21 11:53 Resp 18 03/08/21 10:17 BP 125/78 03/08/21 11:53 Pulse Ox 97 03/08/21 11:53 - Orders/Labs/Meds Labs: Laboratory Tests 03/08/21 03/08/21 Range/Units 10:59 10:59 WBC 10.62 (4.0-11.0) K/uL RBC 4.79 (4.30-5.90) M/uL Hgb 14.6 (12.0-16.0) g/dL Hct 43.6 (36.0-46.0) % MCV 91.0 (80.0-98.0) fL MCH 30.5 (27.0-32.0) pg MCHC 33.5 (31.0-37.0) g/dL RDW Std Deviation 44.2 (28.0-62.0) fl RDW Coeff of Grace 13 (11.0-15.0) % Plt Count 234 (150-400) K/uL MPV 11.10 (7.40-12.00) fL Neut % (Auto) 69.8 (48.0-80.0) % Lymph % (Auto) 22.0 (16.0-40.0) % Harvey % (Auto) 6.7 (0.0-15.0) % Eos % (Auto) 1.0 (0.0-7.0) % Baso % (Auto) 0.5 (0.0-1.5) % Neut # (Auto) 7.4 H (1.4-5.7) K/uL Lymph # (Auto) 2.3 (0.6-2.4) K/uL Harvey # (Auto) 0.7 (0.0-0.8) K/uL Eos # (Auto) 0.1 (0.0-0.7) K/uL Baso # (Auto) 0.1 (0.0-0.1) K/uL Nucleated RBC % 0.0 /100WBC Nucleated RBCs # 0 K/uL Sodium 143 (136-145) mmol/L Potassium 3.6 (3.5-5.1) mmol/L Chloride 105 (98-107) mmol/L Carbon Dioxide 27.0 (21.0-32.0) mmol/L BUN 13 (7.0-18.0) mg/dL Creatinine 0.8 (0.6-1.0) mg/dL Est Cr Clr Drug Dosing 94.30 mL/min Estimated GFR (MDRD) > 60.0 ml/min Glucose 100 (74-106) mg/dL Calcium 9.0 (8.5-10.1) mg/dL Total Bilirubin 0.2 (0.2-1.0) mg/dL AST 20 (15-37) IU/L ALT 28 (14-63) IU/L Alkaline Phosphatase 84 (46-116) U/L Total Protein 7.9 (6.4-8.2) g/dL Albumin 3.6 (3.4-5.0) g/dL Globulin 4.3 H (2.6-4.0) g/dL Albumin/Globulin Ratio 0.8 L (0.9-1.6) Meds: Medications Discontinued Medications Generic Name Dose Route Start Last Admin Trade Name Freq PRN Reason Stop Dose Admin Sodium Chloride 1,000 mls @ 999 mls/hr 03/08/21 10:34 03/08/21 11:30 Normal Saline IV 03/08/21 11:34 999 mls/hr .BOLUS ONE Administration Ketorolac Tromethamine 30 mg 03/08/21 10:34 03/08/21 11:31 Ketorolac 30 Mg/Ml Sdv IVPUSH 03/08/21 10:35 30 mg ONETIME ONE Administration Sodium Chloride 10 ml 03/08/21 10:30 03/08/21 11:31 Sodium Chloride 0.9% 10 Ml Syringe FLUSH 10 ml ASDIRECTED PRN Administration Keep Vein Open Sodium Chloride 2.5 ml 03/08/21 10:30 03/08/21 11:30 Sodium Chloride 0.9% 2.5 Ml Syringe FLUSH 2.5 ml ASDIRECTED PRN Administration Keep Vein Open Departure - Departure Time of Disposition: 12:25 Disposition: Home, Self-Care 01 Condition: Good Clinical Impression: Community acquired pneumonia Qualifiers: Laterality: right Lung location: upper lobe of lung Qualified Code(s): J18.9 - Pneumonia, unspecified organism - Discharge Information *PRESCRIPTION DRUG MONITORING PROGRAM REVIEWED*: Not Applicable *COPY OF PRESCRIPTION DRUG MONITORING REPORT IN PATIENT KASEY: Not Applicable Instructions: Community-Acquired Pneumonia, Adult Referrals: Cheryl Linton DO [Primary Care Provider] - Forms: ED Department Discharge Additional Instructions: The following information is given to patients seen in the emergency department who are being discharged to home. This information is to outline your options for follow-up care. We provide all patients seen in our emergency department with a follow-up referral. The need for follow-up, as well as the timing and circumstances, are variable depending upon the specifics of your emergency department visit. If you don't have a primary care physician on staff, we will provide you with a referral. We always advise you to contact your personal physician following an emergency department visit to inform them of the circumstance of the visit and for follow-up with them and/or the need for any referrals to a consulting specialist. The emergency department will also refer you to a specialist when appropriate. This referral assures that you have the opportunity for follow-up care with a specialist. All of these measure are taken in an effort to provide you with optimal care, which includes your follow-up. Under all circumstances we always encourage you to contact your private keo [email or web address] who remains a resource for coordinating your care. When calling for follow-up care, please make the office aware that this follow-up is from your recent emergency room visit. If for any reason you are refused follow-up, please contact the [facility] Emergency Department at and asked to speak to the emergency department charge nurse. [facility] [address] [place] [address] [facility] [address] [place] [id number] Plan: 1. You were evaluated today on an emergent basis. Your complaints of increased fatigue and unchanged symptoms with pneumonia were evaluated blood work and another chest x-ray with additional blood cultures. Your blood work was normal. Your chest x-ray IMPRESSION: Right upper lobe infiltrate consistent with pneumonia. As you have only had 2 days with your current antibiotics, I would like for you to continue them and follow-up with your primary care on Wednesday of next week. If you become short of breath or your O2 sensor reads below 92% please return to the emergency department. 2. You can alternate Tylenol and ibuprofen as needed for pain and fever management. 3. We encourage you to follow up with your primary care provider and/or recommended specialist in the next few days for re-evaluation and further care/management. 4. If your symptoms should worsen, new symptoms develop or any of the signs and symptoms we discussed should arise please return to the emergency room or call [phone] (if needed).
[2021-03-08] MEDS ORDERED: Sodium Chloride 0.9% 2.5 ML Syringe FLUSH PRN (10:30)
[2021-03-08] MEDS ORDERED: Sodium Chloride 0.9% 10 ML Syringe FLUSH PRN (10:30)
[2021-03-08] MEDS ORDERED: Sodium Chloride 0.9% 1,000 ML IV ONE (10:34)
[2021-03-08] MEDS ORDERED: Ketorolac 30 MG/ML SDV IVPUSH ONE (10:34)
[2021-03-08 11:42] LABS: BLOOD UREA NITROGEN,BUN 13 mg/dL (7.0-18.0); CHLORIDE,CL 105 mmol/L (98-107); GLUCOSE RANDOM 100 mg/dL (74-106); POTASSIUM,K 3.6 mmol/L (3.5-5.1); SODIUM,NA 143 mmol/L (136-145)
--- NOTE | 2021-03-08 12:11 | CR ---
INDICATION: Shortness of breath. Recent diagnosis of pneumonia.. COMPARISON: none TECHNIQUE: Two view chest. FINDINGS: There is patchy alveolar and ground-glass infiltration within the right upper lobe. Lungs are otherwise clear. The heart, mediastinum and pulmonary vessels are of normal size. There is no evidence of pleural fluid. IMPRESSION: Right upper lobe infiltrate consistent with pneumonia. Dictated by Darrius Nicholas MD @ 03/08/2021 12:09:[address] Darrius Nicholas @ Mar 08 2021 12:09PM
[2021-03-08 12:18] VITALS: BP 125/78; PULSE 68
== END 2021-03-08 12:44 | disposition home or self-care (01) ==
LOC: MW.ED 09:57
DX: J18.9 Pneumonia, unspecified organism (principal); J45.909 Unspecified asthma, uncomplicated; Z88.1 Allergy status to other antibiotic agents; Z91.09 Other allergy status, other than to drugs and biological substances; Z79.899 Other long term (current) drug therapy
CPT/HCPCS: 36415; 71046; 80053; 85025; 87040; 96374; 99285; J1885; J7030

== ENCOUNTER 2021-03-22 08:18 | Emergency (ER) | payer MEDICAID ==
[2021-03-22] MEDS ORDERED: Ketorolac 15 MG/ML SDV IVPUSH ONE (08:32)
[2021-03-22] MEDS ORDERED: Ketorolac 15 MG/ML SDV IM ONE (08:40)
--- NOTE | 2021-03-22 08:53 | EDM.PDOC ---
ED HPI GENERAL MEDICAL PROBLEM - General Chief Complaint: Upper Extremity Injury/Pain Stated Complaint: SHOULDER PAIN Time Seen by Provider: 03/22/21 08:22 - History of Present Illness INITIAL COMMENTS - FREE TEXT/NARRATIVE: CHIEF COMPLAINT(S): Right arm pain HISTORY OF PRESENT ILLNESS: This is a 40-year-old woman with a recent diagnosis of community-acquired pneumonia who has completed antibiotic treatment who comes to the emergency department with a chief complaint of right arm pain. The patient states that for the last 3 days she has been experiencing right shoulder pain which radiates down into the tricep area of her arm and into her fingers. She states that it is rated 8 out of 10 and describes the pain as swollen and straight pain. She does not describe it as burning, sharp, aching. She states there is some associated tingling like her hand is falling asleep. She states that she feels that the shoulder area is black and blue. She denies any fevers, chills, shoulder injury. She states that she has tried Tylenol without any relief. She also tried ice 20 minutes and a heating pad without any relief. She denies any neck injury or neck pain. She does not recall what happened. She states that the pain is exacerbated by touching it and moving it. She states that there are no relieving factors. She has also tried Flexeril without any relief. She denies any chest pain, shortness of breath, recent travel, recent surgery or prior history of DVT or PE. She states that she is vaccinated with last dose in December 2020 for which she received the Pfizer vaccine. REVIEW OF SYSTEMS: Constitutional: Denies fever, chills. Eyes: Denies eye pain Ears, Nose, Mouth, & Throat: Denies earache Cardiovascular: Denies chest pain Respiratory: Denies shortness of breath Gastrointestinal: Denies Nausea, vomiting, diarrhea, hematochezia. Genitourinary: Denies hematuria Skin:Denies a rash MSK: Positive for right shoulder pain and arm pain. Neurological: Positive for tingling of right upper extremity. Denies blurred vision, numbness, weakness psychiatric: Denies depression PAST MEDICAL HISTORY: As per history of present illness and as reviewed below otherwise noncontributory. SURGICAL HISTORY: As per history of present illness and as reviewed below otherwise noncontributory. SOCIAL HISTORY: As per history of present illness and as reviewed below otherwise noncontributory. FAMILY HISTORY: As per history of present illness and as reviewed below otherwise noncontributory. EXAMINATION OF ORGAN SYSTEMS/BODY AREAS: Constitutional: Blood pressure is 134/87, heart rate 81, respiratory rate 18 with an oxygen saturation of 95% on room air. Temperature 35.9 temporally General: Well-appearing woman who is in no acute distress Psychiatric: Appropriate mood and affect. Eyes: No scleral icterus or conjunctival erythema ENMT: Moist mucous membranes. No pharyngeal erythema Cardiovascular: Regular, rate, and rhythm. No gallops, murmurs, or rubs. Bilateral upper extremity pulses symmetric and intact. No peripheral edema. No JVD. Respiratory: Lungs clear to auscultation bilaterally. No wheezes, rales, or rhonchi. Gastrointestinal: Soft, non-tender, non-distended. Normoactive bowel sounds Genitourinary: No suprapubic tenderness Musculoskeletal: The patient does have full range of motion of the right shoulder. There is no asymmetry when compared to the left. The skin is not blue or black and capillary refill is less than 2 seconds. Her right upper extremity distally and proximally appear to be well perfused. There is tenderness to palpation along the right deltoid, right tricep area. No induration or swelling noted. Skin: No lesions or abrasions. Neurological: Alert, GCS 15 strength and sensation grossly intact in upper extremities bilaterally MEDICAL DECISION MAKING AND COURSE IN THE ED WITH INTERPRETATION/REVIEW OF DIAGNOSTIC STUDIES: This is a 40-year-old woman with a recent diagnosis of community-acquired pneumonia who comes to the emergency department with right deltoid and right tricep tenderness without any abnormality on examination who is neurovascularly intact with normal vital signs. At this time differential includes bony abnormality including fracture therefore we will obtain a right shoulder x-ray. In addition to this ligamentous injury versus rotator cuff could also be considered however unlikely. We will provide the patient with Tor adol for pain relief. The radiological images were viewed by myself along with reading the report from the radiologist. Shoulder x-ray reveals no fracture or dislocation. Right AC joint degenerative changes. After imaging I did discuss the results with the patient. I discussed that at this time that she should treat her pain symptomatically at home with Tylenol and Motrin. And alternate with ice and heat. She was given strict return precautions. She was amenable to discharge at this time and had no further questions DISPOSITION: The patient was discharged home in stable condition. The patient will follow up with orthopedics as needed CONDITION: Fair PROCEDURES: None FINAL IMPRESSION(S)/DIAGNOSES: 1. Acute right shoulder pain Singh Ramírez M.D. right shoulder Pain Score (Numeric/FACES): 8 - Related Data Allergies Allergy/AdvReac Type Severity Reaction Status Date / Time sulfamethoxazole Allergy Rash Verified 03/22/21 08:27 [From Bactrim] trimethoprim [From Bactrim] Allergy Rash Verified 03/22/21 08:27 Skin glue Allergy Other Uncoded 03/08/21 10:37 Home Meds: Home Meds Progesterone, Micronized [Progesterone] 100 mg PO ASDIRECTED MDD EVERY OTHER DAY 03/24/20 [History] Albuterol [Ventolin HFA] 1 dose INH ASDIRECTED 10/26/20 [History] Estradiol [Jeni] 1 dose ASDIRECTED 10/26/20 [History] Venlafaxine [Effexor] 1 dose PO ASDIRECTED 10/26/20 [History] Amoxicillin/Potassium Clav [Augmentin 875-125 Tablet] 1 each PO BID 7 Days #14 tablet 03/06/21 [Rx] Azithromycin 250 mg PO DAILY 5 Days #6 tablet 03/06/21 [Rx] methocarbamoL [Methocarbamol] 1,500 mg PO TID #42 tablet 03/22/21 [Rx] Past Medical History HEENT History: Reports: None Cardiovascular History: Reports: None Respiratory History: Reports: Asthma, Bronchitis, Recurrent Gastrointestinal History: Reports: None Genitourinary History: Reports: None [employer] History: Reports: None Musculoskeletal History: Reports: None Neurological History: Reports: None Psychiatric History: Reports: Anxiety Endocrine/Metabolic History: Reports: None Hematologic History: Reports: None Immunologic History: Reports: None Oncologic (Cancer) History: Reports: None Dermatologic History: Reports: None - Infectious Disease History Infectious Disease History: Reports: Chicken Pox - Past Surgical History Head Surgeries/Procedures: Reports: None HEENT Surgical History: Reports: Adenoidectomy, Tonsillectomy Cardiovascular Surgical History: Reports: None Respiratory Surgical History: Reports: None GI Surgical History: Reports: None Female Surgical History: Reports: Hysterectomy Endocrine Surgical History: Reports: None Neurological Surgical History: Reports: None Musculoskeletal Surgical History: Reports: None Oncologic Surgical History: Reports: None Dermatological Surgical History: Reports: None Social & Family History - Family History Family Medical History: No Pertinent Family History - Tobacco Use Tobacco Use Status *Q: Never Tobacco User Second Hand Smoke Exposure: No - Caffeine Use Caffeine Use: Reports: None - Recreational Drug Use Recreational Drug Use: No Review of Systems - Review of Systems Review Of Systems: See Below ED EXAM, GENERAL - Physical Exam Exam: See Below Course - Vital Signs Last Recorded V/S: Last Vital Signs Temp 35.9 C L 03/22/21 08:25 Pulse 73 03/22/21 10:13 Resp 17 03/22/21 10:13 BP 108/74 03/22/21 10:13 Pulse Ox 95 03/22/21 10:13 - Orders/Labs/Meds Meds: Medications Discontinued Medications Generic Name Dose Route Start Last Admin Trade Name Freq PRN Reason Stop Dose Admin Ketorolac Tromethamine 15 mg 03/22/21 08:32 03/22/21 08:41 Ketorolac 15 Mg/Ml Sdv IVPUSH 03/22/21 08:33 Not Given ONETIME ONE Ketorolac Tromethamine 15 mg 03/22/21 08:40 03/22/21 08:41 Ketorolac 15 Mg/Ml Sdv IM 03/22/21 08:41 15 mg ONETIME ONE Administration Departure - Departure Time of Disposition: 10:03 Disposition: Home, Self-Care 01 Condition: Fair Clinical Impression: Shoulder pain - Discharge Information *PRESCRIPTION DRUG MONITORING PROGRAM REVIEWED*: No *COPY OF PRESCRIPTION DRUG MONITORING REPORT IN PATIENT KASEY: No Prescriptions: methocarbamoL [Methocarbamol] 1,500 mg PO TID #42 tablet Instructions: Shoulder Pain, [id number] Referrals: Cheryl Linton DO [Primary Care Provider] - Forms: ED Department Discharge Additional Instructions: You were evaluated today on an emergent basis. At this time your imaging did show some arthritis of your joint in your right shoulder. Otherwise your exam was normal. At this time I do recommend that she use Tylenol and Motrin alternating for the next 2 days and alternate ice and heat as described below. If you have any worsening symptoms as discussed I would like you to return to the emergency department. Otherwise please follow-up with orthopedics/primary care physician. Please use: Tylenol 500-1000mg every 6 hours (DO NOT TAKE MORE THAN 4000mg in 1 day) Ibuprofen 400mg every 6 hours (Take with food as it can cause ulcers, GI upset) Example schedule: 8:00 AM (Tylenol 500-1000mg) 11:00 AM (Ibuprofen 400mg) 2:00 PM (Tylenol 500-1000mg) 5:00 PM (Ibuprofen 400mg) In addition to Tylenol and Motrin you may use over the counter creams such as Voltaren Cream or Lidocaine Cream (Lidoderm) as needed 4 times a day for symptomatic relief. Ice/heat the area 20 minutes 4 times per day [facility] [address] [place] [id number] [address] [facility] Professional [facility] [address], [address] [place] [address] The patient is informed of any results of their evaluation and diagnostic workup and all questions are answered. They are given discharge instructions and return precautions. The patient is stable for discharge. The patient states they understand and agree with the plan and that they will return if their symptoms get worse or if they have any new concerns. The following information is given to patients seen in the emergency department who are being discharged to home. This information is to outline your options for follow-up care. We provide all patients seen in our emergency department with a follow-up referral. The need for follow-up, as well as the timing and circumstances, are variable depending upon the specifics of your emergency department visit. If you don't have a primary care physician on staff, we will provide you with a referral. We always advise you to contact your personal physician following an emergency department visit to inform them of the circumstance of the visit and for follow-up with them and/or the need for any referrals to a consulting specialist. The emergency department will also refer you to a specialist when appropriate. This referral assures that you have the opportunity for follow-up care with a specialist. All of these measure are taken in an effort to provide you with optimal care, which includes your follow-up. Under all circumstances we always encourage you to contact your private physician who remains a resource for coordinating your care. When calling for follow-up care, please make the office aware that this follow-up is from your recent emergency room visit. If for any reason you are refused follow-up, please contact the [facility] Emergency Department at and asked to speak to the emergency department charge nurse. Sepsis Event Note (ED) - Evaluation Sepsis Screening Result: No Definite Risk
--- NOTE | 2021-03-22 09:39 | CR ---
HISTORY: Pain. TECHNIQUE: Three views of the right shoulder. COMPARISON: No prior. FINDINGS: No acute fracture or dislocation. The right glenohumeral joint is maintained. There are mild right AC joint degenerative changes. Low lung volumes. Right lung appears clear. No pneumothorax. IMPRESSION: 1. No fracture or dislocation. 2. Right glenohumeral joint is maintained. 3. Right AC joint degenerative changes. Dictated by Rony Frausto MD @ 03/22/2021 9:37:37 AM (Electronically Signed)
[2021-03-22 10:13] VITALS: BP 108/74; PULSE 73
== END 2021-03-22 10:13 | disposition home or self-care (01) ==
LOC: MW.ED 08:18
DX: M25.511 Pain in right shoulder (principal); J45.909 Unspecified asthma, uncomplicated; Z88.2 Allergy status to sulfonamides; Z91.048 Other nonmedicinal substance allergy status; Z79.899 Other long term (current) drug therapy
CPT/HCPCS: 73030; 96372; 99283; J1885

== ENCOUNTER 2021-09-15 15:40 | Emergency (ER) | payer MEDICAID ==
[2021-09-15 18:20] VITALS: BP 123/87; PULSE 76
== END 2021-09-15 18:20 | disposition home or self-care (01) ==
LOC: MW.ED 15:40
DX: R07.81 Pleurodynia (principal); J03.90 Acute tonsillitis, unspecified; Z88.1 Allergy status to other antibiotic agents; Z91.048 Other nonmedicinal substance allergy status
CPT/HCPCS: 71046; 71046-26; 99283-25

== ENCOUNTER 2021-10-03 06:48 | Emergency (ER) | payer MEDICAID ==
[2021-10-03] MEDS ORDERED: Sodium Chloride 0.9% 10 ML Syringe FLUSH PRN (07:03)
[2021-10-03] MEDS ORDERED: Sodium Chloride 0.9% 2.5 ML Syringe FLUSH PRN (07:03)
[2021-10-03] MEDS ORDERED: Aspirin 81 MG Tab.Chew PO ONE (07:05)
[2021-10-03 07:15] VITALS: BP 143/92; PULSE 76
[2021-10-03] MEDS ORDERED: Sodium Chloride 0.9% 1,000 ML IV ONE (07:20)
[2021-10-03 07:48] LABS: BLOOD UREA NITROGEN,BUN 11 mg/dL (7.0-18.0); CARBON DIOXIDE,CO2 24.7 mmol/L (21.0-32.0); CHLORIDE,CL 106 mmol/L (98-107); GLUCOSE RANDOM 111 mg/dL (74-106); SODIUM,NA 141 mmol/L (136-145)
== END 2021-10-03 09:06 | disposition home or self-care (01) ==
LOC: MW.ED 06:48
DX: R53.1 Weakness (principal); Z91.048 Other nonmedicinal substance allergy status; Z88.1 Allergy status to other antibiotic agents
CPT/HCPCS: 36415; 80053; 81003; 81025; 84443; 84484; 85025; 93005; 99284; A9270; J7030

== ENCOUNTER 2022-06-14 14:17 | Emergency (ER) | payer BC, MEDICAID ==
[2022-06-14 15:15] LABS: CORONAVIRUS COVID-19 NAA NEGATIVE (NEGATIVE); INFLUENZA A NAA NEGATIVE (NEGATIVE); INFLUENZA B NAA NEGATIVE (NEGATIVE); RESPIRATORY SYNCYTIAL VIR NAA NEGATIVE (NEGATIVE)
[2022-06-14 17:39] VITALS: BP 132/88; PULSE 101
== END 2022-06-14 17:38 | disposition home or self-care (01) ==
LOC: MW.ED 14:17
DX: R05.9 Cough, unspecified (principal); Z88.2 Allergy status to sulfonamides; Z91.048 Other nonmedicinal substance allergy status; Z79.899 Other long term (current) drug therapy; Z90.710 Acquired absence of both cervix and uterus; Z20.822 Contact with and (suspected) exposure to COVID-19
CPT/HCPCS: 0241U; 71045; 99283

== ENCOUNTER 2023-03-15 02:46 | Emergency (ER) | payer BC, MEDICAID | END 2023-03-15 03:52 | disposition left against medical advice (07) | LOC: MW.ED 02:46 | DX: Z53.21 Procedure and treatment not carried out due to patient leaving prior to being seen by health care provider (principal) ==

== ENCOUNTER 2024-02-09 10:37 | Emergency (ER) | payer BC ==
[2024-02-09 11:10] LABS: BASOPHILS ABSOLUTE AUTO 0.02 K/uL (0.00-0.20); BASOPHILS PERCENT AUTO 0.3 % (0.0-1.0); EOSINOPHILS ABSOLUTE AUTO 0.09 K/uL (0.00-0.45); EOSINOPHILS PERCENT AUTO 1.4 % (0.0-6.0); HEMATOCRIT 35.9 % (37.0-47.0); HEMOGLOBIN 12.2 g/dL (12.0-16.0); IMMATURE GRAN ABSOLUTE AUTO 0.01 K/uL (0.00-0.05); IMMATURE GRAN PERCENT AUTO 0.2 % (0.0-0.4); LYMPHOCYTES ABSOLUTE AUTO 1.77 K/uL (1.00-4.80); MEAN CORPUSCULAR HEMOGLOBIN 30.3 pg (28.0-32.0); MEAN CORPUSCULAR VOLUME 89.1 fL (83.0-99.0); MONOCYTES PERCENT AUTO 9.5 % (0.0-8.0); NEUTROPHILS ABSOLUTE AUTO 3.84 K/uL (1.80-7.70); NEUTROPHILS PERCENT AUTO 60.6 % (41.0-71.0); PLATELET COUNT,PLT 212 K/uL (150-400); RED BLOOD CELL COUNT 4.03 M/uL (4.10-5.30); WHITE BLOOD CELL COUNT,WBC 6.33 K/uL (3.9-11.3)
[2024-02-09] MEDS: Sodium Chloride 0.9% 1,000 ML IV ONE (11:10)
[2024-02-09] MEDS: Ketorolac 30 MG/ML SDV IVPUSH ONE (11:12)
[2024-02-09 11:34] LABS: A/G RATIO 0.9 (0.9-1.6); ALBUMIN 3.2 g/dL (3.4-5.0); BILIRUBIN TOTAL 2.1 mg/dL (0.2-1.0); CALCIUM 8.8 mg/dL (8.5-10.1); CARBON DIOXIDE,CO2 30.4 mmol/L (21.0-32.0); CREATININE 0.7 mg/dL (0.6-1.0); EST CRCL DRUG DOSING (CG) 100.77 mL/min; POTASSIUM,K 3.4 mmol/L (3.5-5.1); PROTEIN TOTAL,TP 6.6 g/dL (6.4-8.2)
[2024-02-09] MEDS: Iopamidol 755 MG/ML 500 ML Multipack Bottle IVPUSH STA (11:56)
[2024-02-09] MEDS: LORazepam 2 MG/ML SDV IVPUSH ONE (13:19)
[2024-02-09] MEDS: Morphine 2 MG/ML SYRINGE IVPUSH ONE (14:12)
[2024-02-09 15:55] VITALS: BP 112/71; PULSE 80
== END 2024-02-09 16:04 | disposition home or self-care (01) ==
LOC: MW.ED 10:37
DX: K81.9 Cholecystitis, unspecified (principal); R94.5 Abnormal results of liver function studies; J45.909 Unspecified asthma, uncomplicated; Z90.710 Acquired absence of both cervix and uterus; Z79.899 Other long term (current) drug therapy; Z91.048 Other nonmedicinal substance allergy status; Z88.2 Allergy status to sulfonamides; Z88.8 Allergy status to other drugs, medicaments and biological substances; Z75.8 Other problems related to medical facilities and other health care
CPT/HCPCS: 36415; 74177; 74181; 76705; 80053; 85025; 96361; 96374; 96375; 99284; J1885; J2060; J2270; J7030; Q9967

== ENCOUNTER 2024-07-14 16:04 | Emergency (ER) | payer BC ==
[2024-07-14 16:49] LABS: BASOPHILS ABSOLUTE AUTO 0.03 K/uL (0.00-0.20); BASOPHILS PERCENT AUTO 0.5 % (0.0-1.0); EOSINOPHILS PERCENT AUTO 1.5 % (0.0-6.0); HEMATOCRIT 38.9 % (37.0-47.0); HEMOGLOBIN 12.8 g/dL (12.0-16.0); IMMATURE GRAN ABSOLUTE AUTO 0.01 K/uL (0.00-0.05); IMMATURE GRAN PERCENT AUTO 0.2 % (0.0-0.4); MEAN CORPUSCULAR HGB CONC 32.9 g/dL (32.0-36.0); MEAN CORPUSCULAR VOLUME 91.1 fL (83.0-99.0); MONOCYTES ABSOLUTE AUTO 0.43 K/uL (0.00-0.80); MONOCYTES PERCENT AUTO 6.5 % (0.0-8.0); NEUTROPHILS ABSOLUTE AUTO 3.89 K/uL (1.80-7.70); NEUTROPHILS PERCENT AUTO 58.3 % (41.0-71.0); PLATELET COUNT,PLT 212 K/uL (150-400); RED BLOOD CELL COUNT 4.27 M/uL (4.10-5.30); WHITE BLOOD CELL COUNT,WBC 6.66 K/uL (3.9-11.3)
[2024-07-14] MEDS: Morphine 4 MG/ML Syringe IVPUSH ONE (17:06)
[2024-07-14] MEDS: Sodium Chloride 0.9% 1,000 ML IV ONE (17:06)
[2024-07-14] MEDS: Ondansetron 4 MG/2 ML SDV IVPUSH ONE (17:06)
[2024-07-14 17:20] LABS: A/G RATIO 1.2 (0.9-1.6); ALBUMIN 3.5 g/dL (3.4-5.0); BILIRUBIN TOTAL 0.3 mg/dL (0.2-1.0); CALCIUM 8.7 mg/dL (8.5-10.1); CREATININE 0.8 mg/dL (0.6-1.0); EST CRCL DRUG DOSING (CG) 85.7 mL/min; POTASSIUM,K 3.9 mmol/L (3.5-5.1); PROTEIN TOTAL,TP 6.5 g/dL (6.4-8.2)
[2024-07-14 18:32] VITALS: BP 109/73; PULSE 74
== END 2024-07-14 18:10 | disposition home or self-care (01) ==
LOC: MW.ED 16:04
DX: R10.12 Left upper quadrant pain (principal); J45.909 Unspecified asthma, uncomplicated; Z90.49 Acquired absence of other specified parts of digestive tract; Z90.710 Acquired absence of both cervix and uterus; Z88.8 Allergy status to other drugs, medicaments and biological substances; Z91.048 Other nonmedicinal substance allergy status; Z79.51 Long term (current) use of inhaled steroids; Z79.899 Other long term (current) drug therapy; Z75.8 Other problems related to medical facilities and other health care
CPT/HCPCS: 36415; 80053; 83690; 85025; 96361; 96374; 99284; J2405; J7030

== ENCOUNTER 2024-07-21 08:51 | Day surgery (SDC) | payer BC ==
[2024-07-21] MEDS: Lactated Ringers 1,000 ML IV SCH (09:30)
[2024-07-21] MEDS ORDERED: Ondansetron 4 MG/2 ML SDV ONE (09:32)
[2024-07-21] MEDS ORDERED: propofoL 500 MG/50 ML 50 ML ONE (10:07)
[2024-07-21] MEDS ORDERED: Propofol 200 MG/20 ML SDV ONE ×2 (11:18→11:33)
[2024-07-21] MEDS ORDERED: fentaNYL 100 MCG/2 ML SDV ONE (11:29)
[2024-07-21] MEDS ORDERED: Lactated Ringers 1,000 ML IV SCH (12:00)
[2024-07-21 14:38] VITALS: BP 98/67; PULSE 53
== END 2024-07-21 12:45 | disposition home or self-care (01) ==
LOC: MW.SDS 08:51
PROVIDERS: ATTEND Surgery
DX: D12.0 Benign neoplasm of cecum (principal); K20.0 Eosinophilic esophagitis; K31.89 Other diseases of stomach and duodenum; K64.8 Other hemorrhoids; J45.909 Unspecified asthma, uncomplicated; F41.8 Other specified anxiety disorders; Z79.899 Other long term (current) drug therapy; Z88.2 Allergy status to sulfonamides
CPT/HCPCS: 43239; 45380; J2405; J2704; J7120; 00813; J3010